=== PATIENT | female | born 1960 | race Caucasian/White ===

== ENCOUNTER 2018-06-24 13:45 | Emergency (ER) | payer OTHER ==
[~2018-06-24] VITALS: Ht 175.3 cm; Wt 86.2 kg
[~2018-06-24 13:45] MED LIST: ALPRAZOLAM; ANTIVERT25 MG PO; HCTZ; HYDROCHLOROTH12.5 MG PO; HYDROCHLOROTHIA25 M1 PO; HYDROCODON-ACE1 EACH PO; K-DUR10 MEQ PO; LEVOTHYROXINE 0.1 MG PO; LEVOXYL; MUCINEX600 MG PO; PHENERGAN 25 MG25 M1 PO; SIMVASTATIN40 MG PO; TESSALON PERLE100 M1 PO; UNKNOWN THYROID MED; XANAX 0.25 MG0.25 MG PO; ZITHROMAX TRI-500 MG PO; ZOFRAN4 MG PO
[2018-06-24] MEDS ORDERED: COZAAR 25 MG TA25 M1 PO (14:00)
[2018-06-24] MEDS ORDERED: VITAMIN D1000 UNI1 PO (14:01)
[2018-06-24 14:28] LABS: ABSOLUTE BASOPHILS 0.1 thou/uL (0.0-0.2); ABSOLUTE EOSINOPHILS 0.2 thou/uL (0.0-0.7); ABSOLUTE LYMPHOCYTES 1.6 thou/uL (0.8-5.3); ABSOLUTE MONOCYTES 0.4 thou/uL (0.0-1.2); ABSOLUTE NEUTROPHILS 3.1 thou/uL (1.6-8.1); BASOPHILS 2.5 %; EOSINOPHILS 3.1 %; HEMATOCRIT 37.3 % (37.0-47.0); LYMPHOCYTES 30.2 %; MCHC 34.9 g/dL (28.0-37.0); MCV 86.1 fL (80.0-100.0); MPV 7.9 fl. (7.2-11.1); NUCLEATED RBCS 0 /100WBC; PLATELET COUNT* 273 thou/uL (150-400); POLYS 57.2 %; RBC 4.34 mil/uL (4.20-5.00); RDW-CV 12.9 % (10.5-14.5); WBC 5.4 thou/uL (4.0-11.0)
[2018-06-24 14:40] LABS: ANION GAP 8 mmol/L (7-16); BUN 11 mg/dL (7-18); CALCIUM 8.8 mg/dL (8.5-10.1); CHLORIDE 102 mmol/L (98-107); CO2 29 mmol/L (21-32); CREATININE 0.8 mg/dL (0.6-1.3); GLUCOSE 101 mg/dL (70-99); POTASSIUM 3.5 mmol/L (3.5-5.1); SODIUM 139 mmol/L (136-145)
[2018-06-24 14:48] LABS: ALBUMIN 4.4 g/dL (3.4-5.0); ALKALINE PHOSPHATASE 86 U/L (46-116); SGOT 20 U/L (15-37); SGPT 25 U/L (30-65); TOTAL BILIRUBIN 0.3 mg/dL (<0.1-1.0); TOTAL PROTEIN 7.4 g/dL (6.4-8.2); TROPONIN-I LEVEL <0.06 ng/mL (<0.06)
[2018-06-24] MEDS ORDERED: VENTOLIN HFA 1818 GM INH (16:45)
[2018-06-24] MEDS ORDERED: LEVAQUIN 500 M500 M2 PO (16:45)
[2018-06-24 16:58] VITALS: BP 126/69
--- NOTE | 2018-06-25 10:47 | EKG ---
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: : 1960 Requested By: Toshia Jarvis Order Number: [id number] MD: Lopez Cordon Measurements Intervals [place] Rate: 80 P: 22 WV: 196 QRS: 63 QRSD: 113 T: 28 QT: 408 QTc: 471 Interpretive Statements Sinus rhythm nonspecific st changes Borderline intraventricular conduction delay Compared to ECG 11/17/2016 02:54:22 No significant changes Electronically Signed On 06-25-2018 10:47:16 CDT by Lopez Cordon [email or web address] <ELECTRONICALLY SIGNED> By: Lopez Cordon MD, [facility] 06/25/18 1047 D: 09/3 1433 Lopez Cordon MD, FACC /EPI
== END 2018-06-24 16:59 | disposition home or self-care (01) ==
LOC: M.ERS 13:45
PROVIDERS: Nurse Practitioner Family
DX: J18.9 Pneumonia, unspecified organism (principal); I10 Essential (primary) hypertension; E03.9 Hypothyroidism, unspecified; E78.00 Pure hypercholesterolemia, unspecified; N80.9 Endometriosis, unspecified; Z88.1 Allergy status to other antibiotic agents; Z90.710 Acquired absence of both cervix and uterus

== ENCOUNTER 2019-05-23 09:01 | Emergency (ER) | payer OTHER ==
[~2019-05-23] VITALS: Ht 175.3 cm; Wt 83.9 kg
[~2019-05-23 09:01] MED LIST changes: +COZAAR 25 MG TA25 M1 PO; +LEVAQUIN 500 M500 M2 PO; +VENTOLIN HFA 1818 GM INH; +VITAMIN D1000 UNI1 PO
[2019-05-23 09:34] LABS: ABSOLUTE BASOPHILS 0.1 thou/uL (0.0-0.2); ABSOLUTE MONOCYTES 0.4 thou/uL (0.0-1.2); ABSOLUTE NEUTROPHILS 2.6 thou/uL (1.6-8.1); BASOPHILS 1.3 %; EOSINOPHILS 0.5 %; HEMATOCRIT 38.7 % (37.0-47.0); HEMOGLOBIN 13.2 gm/dL (12.0-15.0); LYMPHOCYTES 23.9 %; MCH 29.8 pg (26.0-34.0); MCV 87.7 fL (80.0-100.0); MONOCYTES 9.9 %; MPV 7.8 fl. (7.2-11.1); NUCLEATED RBCS 0 /100WBC; PLATELET COUNT* 222 thou/uL (150-400); POLYS 64.4 %; RBC 4.41 mil/uL (4.20-5.00)
[2019-05-23 09:41] LABS: ANION GAP 9 mmol/L (7-16); BUN 14 mg/dL (7-18); CALCIUM 8.8 mg/dL (8.5-10.1); CHLORIDE 103 mmol/L (98-107); CO2 29 mmol/L (21-32); CREATININE 0.9 mg/dL (0.6-1.3); GLUCOSE 101 mg/dL (70-99); POTASSIUM 3.3 mmol/L (3.5-5.1); SODIUM 141 mmol/L (136-145)
[2019-05-23 09:46] LABS: PROTIME 10.2 Seconds (9.20-11.50)
[2019-05-23 09:52] LABS: BE 0.7 mmol/L (-2 to +3); PCO2 37.1 mmHg (35.0-45.0); PO2 70.1 mmHg (75.0-100.0); pH 7.439 (7.340-7.450)
[2019-05-23 09:52] LABS: ALBUMIN 4.2 g/dL (3.4-5.0); ALKALINE PHOSPHATASE 102 U/L (46-116); LIPASE 99 U/L (73-393); NT-PRO BRAIN NAT PEPTIDE 41 pg/mL (<300); SGOT 19 U/L (15-37); SGPT 29 U/L (30-65); TOTAL BILIRUBIN 0.4 mg/dL (<0.1-1.0); TOTAL PROTEIN 7.3 g/dL (6.4-8.2); TROPONIN-I LEVEL <0.06 ng/mL (<0.06)
[2019-05-23 11:15] LABS: URINE BILIRUBIN NEGATIVE (Negative); URINE BLOOD 1+ (Negative); URINE CLARITY CLEAR; URINE COLOR YELLOW; URINE GLUCOSE-RANDOM NEGATIVE (Negative); URINE KETONES NEGATIVE (Negative); URINE LEUKOCYTES-REFLEX NEGATIVE (Negative); URINE NITRITE-REFLEX NEGATIVE (Negative); URINE PROTEIN NEGATIVE (Negative); URINE SPECIFIC GRAVITY <= 1.005 (1.005-1.030); URINE UROBILINOGEN 0.2 E.U./dl (0.2-1.0)
[2019-05-23 11:33] LABS: BACTERIA-REFLEX 1-9 Few /HPF (None Seen); CASTS None Seen /LPF (None Seen); CRYSTALS None Seen /LPF (None Seen); MUCUS None Seen strn/LPF (None Seen); SQUAMOUS NONE SEEN /LPF (0-3); URINE RBC 3-10 Few /HPF (0-2); URINE WBC-REFLEX None Seen /HPF (0-5)
[2019-05-23 11:59] VITALS: BP 125/68
--- NOTE | 2019-05-23 14:59 | EKG ---
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 : 1960 Requested By: Aravind Mckinney Order Number: [id number] MD: Lopez Cordon Measurements Intervals [place] Rate: 75 P: 57 IN: 204 QRS: 65 QRSD: 113 T: 31 QT: 402 QTc: 449 Interpretive Statements Sinus rhythm Borderline prolonged IN interval Borderline intraventricular conduction delay Compared to ECG 06/24/2018 14:33:04 no change Electronically Signed On 05-23-2019 14:59:16 CDT by Lopez Cordon [email or web address] <ELECTRONICALLY SIGNED> By: Lopez Cordon MD, [facility] 05/23/19 1459 D: 08930 0 Lopez Cordon MD, FACC /EPI
== END 2019-05-23 11:59 | disposition home or self-care (01) ==
LOC: M.ERS 09:01
PROVIDERS: Emergency Medicine
DX: B34.9 Viral infection, unspecified (principal); R11.2 Nausea with vomiting, unspecified; I10 Essential (primary) hypertension; E03.9 Hypothyroidism, unspecified; N80.9 Endometriosis, unspecified; E78.00 Pure hypercholesterolemia, unspecified; Z98.890 Other specified postprocedural states; Z90.710 Acquired absence of both cervix and uterus; Z88.6 Allergy status to analgesic agent; Z88.1 Allergy status to other antibiotic agents

== ENCOUNTER 2020-08-11 14:08 | Emergency (ER) | payer OTHER ==
[~2020-08-11] VITALS: Ht 175.3 cm; Wt 86.2 kg
[2020-08-11 15:00] LABS: ABSOLUTE BASOPHILS 0.1 thou/uL (0.0-0.2); ABSOLUTE EOSINOPHILS 0.1 thou/uL (0.0-0.7); ABSOLUTE LYMPHOCYTES 1.9 thou/uL (0.8-5.3); ABSOLUTE MONOCYTES 0.3 thou/uL (0.0-1.2); ABSOLUTE NEUTROPHILS 1.6 thou/uL (1.6-8.1); BASOPHILS 1.3 %; EOSINOPHILS 1.5 %; HEMATOCRIT 33.9 % (37.0-47.0); HEMOGLOBIN 11.5 gm/dL (12.0-15.0); LYMPHOCYTES 49.1 %; MCH 28.9 pg (26.0-34.0); MCHC 33.9 g/dL (28.0-37.0); MCV 85.1 fL (80.0-100.0); MONOCYTES 8.7 %; MPV 7.7 fl. (7.2-11.1); NUCLEATED RBCS 0 /100WBC; PLATELET COUNT* 196 thou/uL (150-400); POLYS 39.4 %; RBC 3.98 mil/uL (4.20-5.00); RDW-CV 13.3 % (10.5-14.5)
[2020-08-11 15:08] LABS: CALCIUM 8.4 mg/dL (8.5-10.1); CREATININE 0.7 mg/dL (0.6-1.3); POTASSIUM 3.4 mmol/L (3.5-5.1)
[2020-08-11 15:14] LABS: APTT 23.7 Seconds (25.0-31.3); PROTIME 10.6 Seconds (9.20-11.50)
[2020-08-11 15:21] LABS: ALBUMIN 3.8 g/dL (3.4-5.0); CK-MB MASS 0.6 ng/mL (<0.5-3.6); MAGNESIUM 2.2 mg/dL (1.8-2.4); TOTAL BILIRUBIN 0.5 mg/dL (<0.1-1.0); TOTAL PROTEIN 6.9 g/dL (6.4-8.2)
[2020-08-11 15:52] VITALS: BP 138/66
--- NOTE | 2020-08-11 16:16 | EKG ---
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 : 1960 Requested By: Toshia Jarvis Order Number: [id number] MD: Yosef Mccoy Measurements Intervals [place] Rate: 102 P: 40 WI: 170 QRS: 60 QRSD: 116 T: -4 QT: 358 QTc: 467 Interpretive Statements Sinus tachycardia Multiple ventricular premature complexes Probable left atrial enlargement Nonspecific intraventricular conduction delay Nondiagnostic inferior Q waves Borderline T abnormalities, diffuse leads Compared to ECG 05/23/2019 09:31:28 Ventricular premature complex(es) now present Sinus rate has increased Electronically Signed On 08-11-2020 16:16:37 SHOP SUPERINTENDENT by Yosef Mccoy [email or web address] <ELECTRONICALLY SIGNED> By: Yosef Mccoy MD, FACC 08/11/20 1616 1424 1424 Yosef Mccoy MD, FACC /EPI
== END 2020-08-11 15:53 | disposition home or self-care (01) ==
LOC: M.ERS 14:08
PROVIDERS: Family Medicine
DX: R00.2 Palpitations (principal); Z20.828 Contact with and (suspected) exposure to other viral communicable diseases; N80.9 Endometriosis, unspecified; I10 Essential (primary) hypertension; E78.00 Pure hypercholesterolemia, unspecified; E89.0 Postprocedural hypothyroidism; Z90.710 Acquired absence of both cervix and uterus; Z88.6 Allergy status to analgesic agent; Z88.1 Allergy status to other antibiotic agents